=== PATIENT | female | born 1950 | race Caucasian/White ===

== ENCOUNTER → 2017-10-02 | Outpatient (CLI) | payer OTHER ==
[~2017-10-02] MED LIST: ACULAR LS5 ML OPHTHALMIC; ASPIR 8181 M1 PO; BETAMETHASONE D60 M2 TOP; CLOPIDOGREL75 MG PO; COENZYME Q10100 MG PO; CRESTOR5 MG PO; CYCLOBENZAPRINE5 MG PO; DOVONEX60 GM TOP; DULCOLAX5 MG PO; HUMALOG KW100 UNIT/1; HYDROCODON-ACE1 EAC7 PO; KLOR-CON 1010 MEQ PO; LANTUS100 UNIT/M SUBQ; LASIX 20 MG TAB20 MG PO; MIRALAX17 G1 PO; NORTHERA200 MG PO; PREDNISOLONE ACE5 ML OPHTHALMIC
[2017-10-02 13:40] VITALS: BP 147/72
[2017-10-02 15:37] LABS: ABSOLUTE NEUTROPHILS 6.1 thou/uL (1.4-8.2); BASOPHILS 0.6 % (0.0-2.0); EOSINOPHILS 2.1 % (0.0-3.0); HEMATOCRIT 37.1 % (37.0-47.0); HEMOGLOBIN 12.4 gm/dL (12.0-15.0); LYMPHOCYTES 15.8 % (24.0-44.0); MCH 26.6 pg (26.0-34.0); MCHC 33.3 g/dL (28.0-37.0); MCV 79.8 fL (80.0-100.0); PLATELET COUNT 238 thou/uL (150-400); POLYS 74.5 % (36.0-66.0); RBC 4.65 mil/uL (4.20-5.00); RDW 16.6 % (10.5-14.5); WBC 8.2 thou/uL (4.0-11.0)
[2017-10-02 15:48] LABS: CALCIUM 10.3 mg/dL (8.5-10.1); CREATININE 1.4 mg/dL (0.6-1.0); POTASSIUM 5.3 mmol/L (3.5-5.1)
== END ==
LOC: SEN 09:29
PROVIDERS: Emergency Medicine
DX: I50.9 Heart failure, unspecified (principal); I25.10 Atherosclerotic heart disease of native coronary artery without angina pectoris; I95.1 Orthostatic hypotension; D64.9 Anemia, unspecified

== ENCOUNTER → 2017-11-20 | Outpatient (CLI) | payer OTHER ==
[~2017-11-20] MED LIST changes: -ACULAR LS5 ML OPHTHALMIC; -BETAMETHASONE D60 M2 TOP; -CLOPIDOGREL75 MG PO; -COENZYME Q10100 MG PO; -CRESTOR5 MG PO; -CYCLOBENZAPRINE5 MG PO; -DOVONEX60 GM TOP; -HYDROCODON-ACE1 EAC7 PO; -NORTHERA200 MG PO; -PREDNISOLONE ACE5 ML OPHTHALMIC
[2017-11-20 13:52] VITALS: BP 185/82
[2017-11-20 15:36] LABS: ABSOLUTE NEUTROPHILS 4.4 thou/uL (1.4-8.2); BASOPHILS 0.4 % (0.0-2.0); EOSINOPHILS 2.5 % (0.0-3.0); HEMATOCRIT 34.8 % (37.0-47.0); HEMOGLOBIN 11.8 gm/dL (12.0-15.0); LYMPHOCYTES 21.5 % (24.0-44.0); MCH 28.2 pg (26.0-34.0); MCHC 33.8 g/dL (28.0-37.0); MCV 83.4 fL (80.0-100.0); MONOCYTES 5.9 % (1.0-8.0); PLATELET COUNT 234 thou/uL (150-400); POLYS 69.7 % (36.0-66.0); RBC 4.18 mil/uL (4.20-5.00); RDW 19.6 % (10.5-14.5); WBC 6.4 thou/uL (4.0-11.0)
[2017-11-20 15:43] LABS: CALCIUM 9.1 mg/dL (8.5-10.1); POTASSIUM 4.2 mmol/L (3.5-5.1)
[2017-11-20 16:37] LABS: ANISOCYTOSIS 2+; POLYCHROMASIA SLIGHT
== END ==
LOC: SEN 10-30 15:26
PROVIDERS: Nurse Practitioner Family
DX: Z09 Encounter for follow-up examination after completed treatment for conditions other than malignant neoplasm (principal); I50.9 Heart failure, unspecified; R10.9 Unspecified abdominal pain

== ENCOUNTER → 2018-01-22 | Outpatient (CLI) | payer OTHER ==
[~2018-01-22] MED LIST changes: +NORTHERA200 MG PO
[2018-01-22 15:11] VITALS: BP 160/80
== END ==
LOC: SEN 09:35
DX: M54.5 Low back pain (principal); M54.6 Pain in thoracic spine; R53.83 Other fatigue

== ENCOUNTER → 2018-04-30 | Outpatient (CLI) | payer OTHER ==
[~2018-04-30] MED LIST changes: +ACULAR LS5 ML OPHTHALMIC; +BETAMETHASONE D60 M2 TOP; +CLOPIDOGREL75 MG PO; +COENZYME Q10100 MG PO; +CRESTOR5 MG PO; +CYCLOBENZAPRINE5 MG PO; +DOVONEX60 GM TOP; +HYDROCODON-ACE1 EAC7 PO; +PREDNISOLONE ACE5 ML OPHTHALMIC
[2018-04-30 09:18] VITALS: BP 134/71
== END ==
LOC: SEN 08:17
DX: Z09 Encounter for follow-up examination after completed treatment for conditions other than malignant neoplasm (principal); I50.9 Heart failure, unspecified; E11.9 Type 2 diabetes mellitus without complications; I25.10 Atherosclerotic heart disease of native coronary artery without angina pectoris; Z95.1 Presence of aortocoronary bypass graft

== ENCOUNTER → 2018-05-14 | Outpatient (CLI) | payer OTHER ==
[2018-05-14 13:41] VITALS: BP 190/74
[2018-05-14 15:57] LABS: ALBUMIN 3.5 g/dL (3.4-5.0); CALCIUM 9.2 mg/dL (8.5-10.1); CREATININE 0.8 mg/dL (0.6-1.0); POTASSIUM 4.2 mmol/L (3.5-5.1); TOTAL BILIRUBIN 0.4 mg/dL (<0.1-1.0); TOTAL PROTEIN 6.5 g/dL (6.4-8.2)
== END ==
LOC: SEN 09:34
PROVIDERS: Nurse Practitioner Family
DX: Z09 Encounter for follow-up examination after completed treatment for conditions other than malignant neoplasm (principal); I25.10 Atherosclerotic heart disease of native coronary artery without angina pectoris; I50.9 Heart failure, unspecified; E11.9 Type 2 diabetes mellitus without complications; Z95.1 Presence of aortocoronary bypass graft

== ENCOUNTER → 2018-10-29 | Outpatient (CLI) | payer OTHER | LOC: SEN 16:32 | DX: E11.9 Type 2 diabetes mellitus without complications (principal); I10 Essential (primary) hypertension; F41.9 Anxiety disorder, unspecified; F33.1 Major depressive disorder, recurrent, moderate; Z79.4 Long term (current) use of insulin ==